=== PATIENT | female | born 1985 | race Caucasian/White ===

== ENCOUNTER 2021-04-10 06:45 | Inpatient (IN) | payer OTHER ==
[2021-04-10] MEDS ORDERED: LORazepam 2 MG/ML INJ IV STA ×2 (06:54→07:48)
[2021-04-10] MEDS ORDERED: TRANEXAMIC ACID 1,000 MG in SODIUM CHLORIDE 0.9% 100 ML IV STA (06:54)
[2021-04-10] MEDS ORDERED: DIPH,PERTUS(ACELL)TETVAC-LF 0.5 ML VIAL IM ONE (06:57)
[2021-04-10] MEDS: MORPHINE SULFATE 4 MG/ML SYRINGE IVP STA ×2 (06:57→07:06)
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
[2021-04-10] MEDS ORDERED: ONDANSETRON 4 MG/2 ML VIAL IVP STA ×2 (07:07→07:49)
[2021-04-10 07:10] LABS: HCT 42.9 % (34.0-46.0); HGB 13.7 gm/dL (11.4-16.0); MCH 30.2 pg (25.0-35.0); MCV 94.3 fL (80.0-100.0); Mean Platelet Volume 8.1; Platelet Count 286 k/uL (150-450); RBC 4.55 m/uL (3.80-5.40); RDW 12.4 % (11.5-15.5)
[2021-04-10] MEDS ORDERED: HYDROmorphone 1 MG/ML 1 ML SYRINGE IVP STA (07:15)
[2021-04-10 07:20] LABS: ALT 12 U/L (4-34); African American GFR (CKD) >90 (>60 ml/min/1.73 sqM); Albumin 3.8 g/dL (3.5-5.0); Alcohol 43 mg/dL; Anion Gap 10 mmol/L; Blood Urea Nitrogen 12 mg/dL (7-17); Calcium 8.6 mg/dL (8.4-10.2); Carbon Dioxide 16 mmol/L (22-30); Chloride 113 mmol/L (98-107); Glucose 140 mg/dL (74-99); Non-African American GFR(CKD) >90 (>60 ml/min/1.73 sqM); Sodium 139 mmol/L (137-145); Total Bilirubin 0.3 mg/dL (0.2-1.3); Total Protein 6.8 g/dL (6.3-8.2)
[2021-04-10 07:24] LABS: AST 22 U/L (14-36); Alkaline Phosphatase 81 U/L (38-126); Potassium 3.9 mmol/L (3.5-5.1)
[2021-04-10 07:26] LABS: Prothrombin Time 10.7 sec (9.0-12.0)
[2021-04-10 07:34] LABS: Partial Thromboplastin Time 21.5 sec (22.0-30.0)
[2021-04-10 07:34] LABS: Appearance,Urine Clear (Clear); Bilirubin,Urine Negative (Negative); Blood,Urine Negative (Negative); Color,Urine Yellow; Glucose,Urine (UA) Negative (Negative); Ketones,Urine Negative (Negative); Leukocyte Esterase,Urine Negative (Negative); Nitrite,Urine Negative (Negative); PH, Urine 5.5 (5.0-8.0); Protein,Urine Negative (Negative); Specific Gravity,Urine 1.014 (1.001-1.035); Urobilinogen,Urine <2.0 mg/dL (<2.0)
[2021-04-10 07:40] LABS: Eosinophils # (M) 0.12 k/uL (0-0.7); Monocytes # (M) 0.72 k/uL (0-1.0); Neutrophils # (M) 9.36 k/uL (1.3-7.7); Neutrophils % (M) 78 %; Nucleated Red Blood Cells 0 /100 WBC (0-0); Total Cells Counted 100
[2021-04-10] MEDS ORDERED: NALOXONE 0.4 MG/ML 1 ML VIAL IVP STA (07:40)
[2021-04-10] MEDS ORDERED: KETAMINE 10 MG/ML 20 ML VIAL IV ONE (07:40)
[2021-04-10 07:43] LABS: Amphetamine Screen,Urine Not Detected (NotDetected); Barbiturate Screen,Urine Not Detected (NotDetected); Benzodiazepines Screen,Urine Not Detected (NotDetected); Cocaine Screen,Urine Not Detected (NotDetected); Methadone Screen, Urine Not Detected (NotDetected); Opiate Screen,Urine Detected (NotDetected); Oxycodone Screen, Urine Not Detected (NotDetected); Phencyclidine Screen,Urine Not Detected (NotDetected); Tricyclic Antidepressant,Urine Not Detected (NotDetected); Urn Cannabinoid Scrn Detected (NotDetected)
[2021-04-10] MEDS ORDERED: SODIUM CHLORIDE 0.9% 1,000 ML IV STA (08:07)
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
[2021-04-10] MEDS ORDERED: PROPOFOL 10 MG/ML 20 ML VIAL IV ONE (08:39)
[2021-04-10] MEDS ORDERED: fentaNYL (PF) 50 MCG/ML 2 ML AMP ONE (08:39)
[2021-04-10] MEDS ORDERED: LIDOCAINE 1% INJ 10MG/ML (20 ML MDV) ONE (08:39)
[2021-04-10] MEDS ORDERED: PHENYLEPHRINE-0.9% NACL SYG 1,000 MCG/10 ML SYRINGE ONE (08:39)
[2021-04-10] MEDS ORDERED: SODIUM CHLORIDE 0.9% 100 ML BAG ONE (08:39)
[2021-04-10] MEDS ORDERED: HYDROmorphone (PF) 1 MG/ML ONE (08:39)
[2021-04-10] MEDS ORDERED: SUCCINYLCHOLINE CHLORIDE 100 MG/5 ML SYR IV ONE (08:39)
[2021-04-10] MEDS ORDERED: ceFAZolin 1,000 MG VIAL ONE (08:39)
[2021-04-10] MEDS ORDERED: LACTATED RINGERS 1,000 ML IV ONE ×4 (08:41→11:51)
[2021-04-10] MEDS ORDERED: HEPARIN SODIUM,PORCINE 5,000 UNIT in SODIUM CHLORIDE 0.9% 500 ML 500 ML IV ONE (08:45)
[2021-04-10] MEDS ORDERED: HEPARIN SODIUM,PORCINE 10,000 UNIT/ML 1 ML VIAL IV ONE (08:45)
[2021-04-10] MEDS ORDERED: ceFAZolin 1,000 MG in SODIUM CHLORIDE 0.9% 500 ML IRRIGATION ONE (09:45)
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
[2021-04-10] MEDS ORDERED: NALOXONE 0.4 MG/ML 1 ML VIAL IV PRN (11:02)
[2021-04-10] MEDS ORDERED: ONDANSETRON 4 MG/2 ML VIAL IVP PRN (11:06)
[2021-04-10] MEDS ORDERED: ACETAMINOPHEN TAB 325 MG TAB PO PRN (11:06)
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
[2021-04-10] MEDS ORDERED: HYDROmorphone 0.5 MG/0.5 ML SYRINGE IVP ONE (11:20)
[2021-04-10] MEDS: HYDROcodone/APAP 5-325MG 1 EACH TAB PO PRN (14:03)
[2021-04-10] MEDS: HYDROmorphone 0.5 MG/0.5 ML SYRINGE IVP PRN ×2 (16:53→20:39)
[2021-04-10] MEDS: HEPARIN SODIUM,PORCINE/PF 5,000 UNIT/0.5 ML SYRINGE SQ SCH (16:53)
[2021-04-10] MEDS: D5-0.45% NACL WITH KCL 20MEQ/L 1,000 ML IV SCH ×2 (16:55→21:17)
[2021-04-10 19:22] VITALS: RESP 16
[2021-04-10] MEDS: DOCUSATE 100 MG CAP PO SCH (21:15)
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
[2021-04-11] MEDS: HEPARIN SODIUM,PORCINE/PF 5,000 UNIT/0.5 ML SYRINGE SQ SCH ×2 (00:20→07:43)
[2021-04-11] MEDS: HYDROmorphone 0.5 MG/0.5 ML SYRINGE IVP PRN ×4 (00:29→11:19)
[2021-04-11] MEDS: D5-0.45% NACL WITH KCL 20MEQ/L 1,000 ML IV SCH ×2 (03:53→11:48)
[2021-04-11] MEDS: DOCUSATE 100 MG CAP PO SCH (07:42)
[2021-04-11] MEDS ORDERED: PANTOPRAZOLE 40 MG/10 ML VIAL IV SCH (09:00)
[2021-04-11] MEDS ORDERED: THIAMINE 100 MG TAB PO SCH (09:00)
[2021-04-11 09:14] LABS: African American GFR (CKD) >90 (>60 ml/min/1.73 sqM); Anion Gap 1 mmol/L; Blood Urea Nitrogen 5 mg/dL (7-17); Calcium 8.6 mg/dL (8.4-10.2); Carbon Dioxide 23 mmol/L (22-30); Chloride 113 mmol/L (98-107); Glucose 110 mg/dL (74-99); Non-African American GFR(CKD) >90 (>60 ml/min/1.73 sqM); Potassium 4.6 mmol/L (3.5-5.1); Sodium 137 mmol/L (137-145)
[2021-04-11] MEDS: HYDROcodone/APAP 5-325MG 1 EACH TAB PO PRN ×3 (09:58→15:00)
--- NOTE | 2021-04-11 11:14 | P.DS ---
Providers Date of admission: 04/10/21 08:14 Expected date of discharge: 04/11/21 Attending physician: Cliff Reese Consults: 04/10/21 11:06 Consult Physician Routine Consulting Provider: Ernestina Denise Consult Reason/Comments: Medical management Do you want consulting provider notified?: Yes Primary care physician: Suha Menjivar - Discharge Diagnosis(es) (1) Injury of ulnar artery Patient admitted through the ER yesterday after laceration right wrist. Doing well today. Pain is minimal. Still has numbness fourth and fifth digits. Able to move all of her digits however. Hand feels warm to her. She is much less anxious than yesterday. She is agreeable for discharge. We'll tentatively plan discharge today. Await vascular surgery evaluation to discuss dressing changes. Outpatient follow-up with hand surgery. Current Visit: Yes Status: Acute (2) Laceration of wrist Current Visit: Yes Status: Acute Patient Condition at Discharge: Serious Plan - Discharge Summary Discharge Rx Participant: No New Discharge Prescriptions: No Action No Known Home Medications Discharge Medication List No Known Home Medications 04/10/21 [History] Follow up Appointment(s)/Referral(s): Suha Menjivar MD [Primary Care Provider] - 1-2 days Dov Perales DO [Doctor of Osteopathic Medicine] - 1 Week
[2021-04-11 11:49] VITALS: BP 114/68; PULSE 63; TEMP 98.8
== END 2021-04-11 15:35 | disposition home or self-care (01) | DRG 908 ==
LOC: EC 06:45 → 4SSUR 08:14 → 5NMEDONC 13:02
PROVIDERS: ADMIT Surgery; ATTEND Surgery
PROC: 03Q90ZZ Repair Right Ulnar Artery, Open Approach (ICD-10-PCS; principal; 2021-04-10 07:55)
DX: S55.011A Laceration of ulnar artery at forearm level, right arm, initial encounter (principal); S66.921A Laceration of unspecified muscle, fascia and tendon at wrist and hand level, right hand, initial encounter; I95.9 Hypotension, unspecified; F10.129 Alcohol abuse with intoxication, unspecified; S54.01XA Injury of ulnar nerve at forearm level, right arm, initial encounter; Z20.822 Contact with and (suspected) exposure to COVID-19; J45.909 Unspecified asthma, uncomplicated; Y90.2 Blood alcohol level of 40-59 mg/100 ml; F17.200 Nicotine dependence, unspecified, uncomplicated; Z71.6 Tobacco abuse counseling; W25.XXXA Contact with sharp glass, initial encounter; W22.09XA Striking against other stationary object, initial encounter
CPT/HCPCS: 36415; 80048; 80053; 80306; 80320; 81003; 81025; 84484; 85025; 85610; 85730; 86850; 86900; 86901; 86920; 87635; 90471; 90715; 93005; 96365; 96375; 99291

== ENCOUNTER 2021-04-15 09:30 | Day surgery (SDC) | payer OTHER ==
[2021-04-14 09:41] VITALS: BMI 24.7
--- NOTE | 2021-04-14 13:15 | P.HPOR ---
History of Present Illness H&P Date: 04/14/21 Chief Complaint: Right hand complex laceration/ ulnar nerve laceration Subjective: This is a 35 year old female that presents today for initial evaluation regarding a right wrist injury that occurred on 04/10/21. Patient reportedly punched through glass and sustained a laceration on the volar ulnar aspect of her wrist. She was taken emergently to the OR due to concern for arterial injury and ultimately underwent a ulnar artery laceration repair on 04/10/[address] Park. Intra-operatively there was concern for tendon/nerve laceration. She is referred to orthopedics today for further work up for her injury. She has been in a volar splint since surgery. She states she has diffuse numbness in the small and ring finger and the ulnar boarder of her middle finger. She also reports global weakness in the hand. She has been taking keflex since her injury. Physical Examination: RUE: AIN/PIN/Radial/Median motor intact. Radial/Median SILT. 2+/4 Radial/Ulnar pulses palpated. 0/5 FDI. 5/5 APB. FPL intact. FDP/FDS index through middle intact. Able to fire FDP/FDS of small and ring finger however weakness is present with resistance to IP joint flexion. Insensate to light touch on volar surfaces of small and ring fingers, slightly diminished sensation on ulnar aspect of middle finger. Imaging: X-Rays of the right wrist demonstrate no fracture or dislocation. Impression: 1.)Right volar/ulnar wrist laceration with ulnar artery/nerve laceration s/p ulnar artery repair by Dr. Park 04/10/21. 2.) Ulnar nerve laceration, possible flexor tendon lacerations to ring/small/FCU tendons. Plan: Diagnosis and treatment options were discussed with the patient. On exam today she has findings concerning for an ulnar nerve laceration as well as wrist flexor tendon lacerations. We discussed the complex nature of her injury and the guarded prognosis for complete return of nerve function. We discussed that she will require further exploration of her laceration to repair any nerve or tendon lacerations. Prognosis of ulnar nerve laceration at the level of the wrist were discussed with the patient and I explained that she will likely have permanent symptoms including numbness and weakness and possible developement of claw deformity due to her injury and that the goals of surgery would be to eventually regain any type of protective sensation. I explained that nerve recovery can take months to years. She understood the risks and benefits of surgery and wished to proceed with surgical intervention. The patient was agreeable with this plan of action and we will tentatively schedule right wrist laceration with possible nerve/tendon repair within the next 3-5 days. -Dov Perales DO Orthopedic Hand/Upper Extremity Surgeon Past Medical History Past Medical History: No Reported History History of Any Multi-Drug Resistant Organisms: None Reported Past Surgical History: Appendectomy Additional Past Surgical History / Comment(s): Essure control. Right arm artery repair. Past Anesthesia/Blood Transfusion Reactions: No Reported Reaction Past Psychological History: Anxiety Smoking Status: Current every day smoker Past Alcohol Use History: Abuse, Heavy Additional Past Alcohol Use History / Comment(s): Smoker off and on for 5 yrs. Past Drug Use History: Marijuana Additional Drug Use History / Comment(s): Marijuana use daily. Aware no Alcohol or Marijuana 24 hrs prior to procedure. - Past Family History Mother Family Medical History: No Reported History Medications and Allergies Home Medications Medication Instructions Recorded Confirmed Type Cephalexin [Keflex] 500 mg PO Q8HR 7 Days #21 cap 04/11/21 04/14/21 Rx oxyCODONE HCL [OxyIR] 5 mg PO Q6H PRN 3 Days #6 tab 04/11/21 04/14/21 Rx Acetaminophen [Tylenol] 500 - 1,000 mg PO Q4-6H PRN 04/14/21 04/14/21 History Allergies Allergy/AdvReac Type Severity Reaction Status Date / Time No Known Allergies Allergy Verified 04/14/21 09:43 Physical Examination Osteopathic Statement: *. No significant issues noted on an osteopathic structural exam other than those noted in the History and Physical/Consult.
[~2021-04-15 09:30] MED LIST: DEXAMETHASONE SOD PHOSPHATE 4 MG/ML 1 ML VIAL IV ONE; LACTATED RINGERS 1,000 ML IV SCH; LIDOCAINE 1% (10MG/ML) FOR IV START INTRADERMA PRN; ONDANSETRON 4 MG/2 ML VIAL IVP ONE; SCOPOLAMINE 1.5MG/72HR PATCH TRANSDERM ONE
[2021-04-15] MEDS ORDERED: SODIUM CHLORIDE 0.9% 100 ML BAG ONE (11:10)
[2021-04-15] MEDS ORDERED: HYDROmorphone (PF) 1 MG/ML ONE (11:10)
[2021-04-15] MEDS ORDERED: NEOSTIGMINE 1 MG/ML 10 ML VIAL ONE (11:10)
[2021-04-15] MEDS ORDERED: PROPOFOL 10 MG/ML 20 ML VIAL IV ONE (11:10)
[2021-04-15] MEDS ORDERED: ceFAZolin 1,000 MG VIAL ONE (11:10)
[2021-04-15] MEDS ORDERED: SUCCINYLCHOLINE CHLORIDE 100 MG/5 ML SYR IV ONE (11:10)
[2021-04-15] MEDS ORDERED: MIDAZOLAM 2 MG/2 ML VIAL ONE (11:10)
[2021-04-15] MEDS ORDERED: ROCURONIUM 10 MG/ML (5 ML VIAL) IV ONE (11:10)
[2021-04-15] MEDS ORDERED: LIDOCAINE 1% INJ 10MG/ML (20 ML MDV) ONE (11:10)
[2021-04-15] MEDS ORDERED: GLYCOPYRROLATE 0.2 MG/ML 2 ML VIAL ONE (11:10)
[2021-04-15] MEDS ORDERED: fentaNYL (PF) 50 MCG/ML 2 ML AMP ONE (11:10)
[2021-04-15] MEDS ORDERED: LIDOCAINE 1% INJ 10MG/ML (20 ML MDV) SQ ONE ×2 (11:49→13:29)
[2021-04-15] MEDS ORDERED: BUPIVACAINE (PF) 0.5% 30 ML VIAL SQ ONE ×2 (11:50→13:29)
[2021-04-15] MEDS ORDERED: LACTATED RINGERS 1,000 ML IV ONE (13:15)
[2021-04-15] MEDS ORDERED: MEPERIDINE 50 MG/ML SYRINGE IVP ONE (13:51)
[2021-04-15 14:16] VITALS: TEMP 97.4
[2021-04-15] MEDS: HYDROmorphone 0.5 MG/0.5 ML SYRINGE IVP PRN ×2 (14:50→15:30)
[2021-04-15] MEDS ORDERED: HYDROcodone/APAP 5-325MG 1 EACH TAB ONE (15:07)
[2021-04-15] MEDS ORDERED: HYDROcodone/APAP 5-325MG 1 EACH TAB PO ONE (15:19)
[2021-04-15] MEDS ORDERED: KETOROLAC 15 MG/ML 1 ML VIAL IVP ONE (15:32)
[2021-04-15] MEDS ORDERED: KETOROLAC 30 MG/ML 1 ML VIAL ONE (15:33)
[2021-04-15 16:27] VITALS: RESP 16
[2021-04-15 16:29] VITALS: BP 138/77; PULSE 77
--- NOTE | 2021-04-15 20:14 | P.OP ---
Date of Procedure: 04/15/21 Preoperative Diagnosis: 1.) Right hand complex laceration involving possible tendon/nerve at level of wrist/distal forearm. Postoperative Diagnosis: 1.) Right ulnar nerve laceration at level of wrist, complete. 2.) Right median nerve laceration at level of wrist, 60% thickness 3.) Right flexor carpi ulnaris tendon laceration, complete 4.) Right palmaris longus tendon laceration, 90% 5.) Right ring finger flexor digitorum profundus tendon laceration, 30% 6.) Right ring finger flexor digitorum superficialis tendon laceration, complete. 7.) Right small finger flexor digitorum profundus tendon laceration, complete. 8.) Complex right wrist laceration, 8cm. Procedure(s) Performed: 1.) Right ulnar nerve laceration repair at level of wrist. 2.) Right median nerve laceration repair at level of wrist. 3.) Right flexor carpi ulnaris tendon laceration repair at level of wrist, zone 5. 4.) Right ring finger flexor digitorum superficialis tendon laceration tendon repair at level of wrist, zone 5. 7.) Right small finger flexor digitorum profundus tendon laceration repair at level of wrist, zone 5. 8.) Right open carpal tunnel release 9.) Complex right wrist laceration repair, 8cm Anesthesia: GETA Surgeon: Dov Perales Estimated Blood Loss (ml): 10 Pathology: none sent Condition: stable Disposition: PACU Description of Procedure: This is a 35 year old female who sustained an injury to her right wrist after punching a mirror. She previously had surgery with Dr. Park, vascular surgeon who peformed an ulnar artery laceration repair on 04/10/21. Intra- operatively there were concerns for possible tendon and nerve involvement. She presents today for further wound exploration with possible tendon/nerve repair. Risks and benefits of surgery were discussed with the patient including bleeding, damage to surrounding tissue, infection, need for further surgery, stiffness, permanent nerve damage and possible loss of limb as well as risks of anesthesia including pulmonary embolism and even and the patient wished to proceed with surgical intervention. The patient was seen in the pre-operative area by myself. Consent and H&P were completed and updated. The correct extremity was marked in the pre-operative area by myself and all other questions were answered. Operative Narrative: The patient was brought to the operating room by the department of anesthesia. They remained on the portable stretcher and a rolling hand table was brought to the side of the operative extremity. Pre-operative time out was performed indicating the correct patient, procedure and laterality. All in the room agreed. Pre-operative antibiotics were given prior to skin incision. The patient was then drifted off to sleep by the department of anesthesia, general anesthesia was utilized. A nonsterile tourniquet was then applied to the operative extremity and the right upper extremity was then prepped and draped in normal sterile fashion. The operative extremity was the elevated to gravity and the tourniquet was inflated to 250mmHg. The previously placed nylon sutures were remove from the laceration and passed off of the sterile field. Wound edges were then easily opened with Littler tenotomy scissors and blunt dissection was taken down through subcutaneous tissue. The flexor carpi ulnaris tendon was identified and was found to be completely lacerated. Deep to the proximal and distal portions of the FCU tendon, the previously performed ulnar artery anastamosis was identified and the proximal and distal portions of the ulnar nerve were identified just ulnar to the artery, there was complete transection of the ulnar nerve at the level of the distal forearm. Exploration was then taken further radial, the median nerve was identified and was found to have a 60% thickness transverse laceration. Deep to the median nerve at the level of the proximal border of the carpal tunnel there appeared to be several lacerated flexor tendons, therefore the existing laceration was extended distally crossing the distal wrist flexion crease with a 15 blade scalpel in a Lala fashion with extension down the mid palmar skin, inline with the radial border of the ring finger. Blunt dissection was taken to reveal the palmar fascia, there appeared to be a 90 percent palmaris longus tendon laceration at the level of its insertion to the superficial palmar fascia, this was not amendable to repair due to the laceration being at the level of its broad insertion. Dissection was taken down to the transverse carpal ligament which was released with a 15 blade scalpel in it's entirety. This unveiled several lacerated flexor tendons, of which the distal portions were found in the carpal tunnel. The FPL tendon was identified and was intact. FDP/FDS to the index, and middle fingers were identified any intact. There was a 30% tendon laceration to the FDP tendon of the ring finger, edges of the partial thickness tendon were trimmed. Proximal and distal portions of the FDS tendon to the ring finger were identified and found to be completely lacerated, this was repaired with 4-0 ethibond suture with a core suture in a modified bill fashion followed by a running 5-0 prolene. The FDP tendon to the small finger was found to be 100% lacerated, proximal and distal portions of the tendon were then repaired using a 4-0 ethibond suture with a core suture in a modified bill fashion. The patient did not have a FDS to the small finger. Attention was then brought to the median nerve laceration. 8-0 nylon suture under loupe magnification was used to perform an epineural repair to loosely approximate the proximal and distal portions of the median nerve in a tension free fashion. Attention was then brought to the completely transected ulnar nerve. The wrist was flexed and edges of ulnar nerve were sharply incised with scalpel to remove fibrous tissue to reveal fresh edges. 8-0 nylon was then used to perform epineural repair to approximate the distal and proximal portions in a tension free manner. Lastly, the previously identified FCU tendon was exposed, 4-0 ethibond was then utilized to perform a core suture in a modified bill pattern, followed by another figure of 8 stitch. The wound was then irrigated. Skin closure was performed with 4-0 nylon suture in a horizontal mattress fashion. 10ccs mixture of 1% lidocaine and .5% bupivicaine was injected into the surgical area and carpal tunnel. Sterile dressing consisting of adaptic, 4x4s, webril, and a dorsal blocking plaster splint with the wrist and MCP joints in flexion and PIP joints in 20 degrees of flexion. Tourniquet was then let down and the the hand was immediately perfused. The patient was then woken by the department of anesthesia and transferred to PACU in stable condition. Dov Perales D.O. Orthopedic Hand/Upper Extremity Surgeon
== END 2021-04-15 16:30 | disposition home or self-care (01) ==
LOC: OR 09:30
PROVIDERS: ATTEND Orthopaedic Surgery Hand Surgery
DX: S64.01XA Injury of ulnar nerve at wrist and hand level of right arm, initial encounter (principal); S64.11XA Injury of median nerve at wrist and hand level of right arm, initial encounter; S61.411A Laceration without foreign body of right hand, initial encounter; S66.821A Laceration of other specified muscles, fascia and tendons at wrist and hand level, right hand, initial encounter; S66.124A Laceration of flexor muscle, fascia and tendon of right ring finger at wrist and hand level, initial encounter; S61.511A Laceration without foreign body of right wrist, initial encounter; S66.126A Laceration of flexor muscle, fascia and tendon of right little finger at wrist and hand level, initial encounter; W25.XXXA Contact with sharp glass, initial encounter; F10.10 Alcohol abuse, uncomplicated; Z90.49 Acquired absence of other specified parts of digestive tract; F41.9 Anxiety disorder, unspecified; F17.200 Nicotine dependence, unspecified, uncomplicated; Z98.890 Other specified postprocedural states; Z79.899 Other long term (current) drug therapy
CPT/HCPCS: 81025; 64721; 26356 ×2; J2250; J1100; J2710; J2175; J2405; J0690; J2001; J3010; J1170 ×2; J1885; J0330; J2704

== ENCOUNTER 2023-09-07 12:08 | Emergency (ER) | payer OTHER ==
[2023-09-07 12:24] VITALS: RESP 18; TEMP 98.6
--- NOTE | 2023-09-07 12:32 | ED ---
General Adult HPI - General Chief complaint: ENT Stated complaint: swallowed foreign obj. Time Seen by Provider: 09/07/23 12:10 Source: patient, RN notes reviewed, old records reviewed Mode of arrival: ambulatory Limitations: no limitations - History of Present Illness Initial comments: This is a 37-year-old female who presents to the emergency department stating that she thinks her nose ring that she swallowed 1 year ago is stuck in her throat that makes it difficult to breathe. Patient is in no respiratory distress. Patient is obviously intoxicated. Patient would not give any further history except that she swallowed a year ago and she wants an x-ray when I told her that she would need given explanation as to why she did not come a year ago or any time during the year she she had very upset and did not want to speak to me anymore and wanted her mother to do all the talking and mom did not have any of the history. Patient is not complaining of any throat pain patient complaining of chest pain. She refused to give any further history - Related Data Home Medications Medication Instructions Recorded Confirmed Acetaminophen [Tylenol] 500 - 1,000 mg PO Q4-6H PRN 04/14/21 04/15/21 Previous Rx's Medication Instructions Recorded Cephalexin [Keflex] 500 mg PO Q8HR 7 Days #21 cap 04/11/21 oxyCODONE HCL [OxyIR] 5 mg PO Q6H PRN 3 Days #6 tab 04/11/21 HYDROcodone/APAP 5-325MG [[place] 2 tab PO Q6HR PRN 3 Days #24 tab 04/15/21 5-325] Allergies Allergy/AdvReac Type Severity Reaction Status Date / Time No Known Allergies Allergy Verified 09/07/23 12:13 Review of Systems ROS Statement: Those systems with pertinent positive or pertinent negative responses have been documented in the HPI. ROS Other: All systems not noted in ROS Statement are negative. Past Medical History Past Medical History: No Reported History History of Any Multi-Drug Resistant Organisms: None Reported Past Surgical History: Appendectomy Additional Past Surgical History / Comment(s): Essure control. Right arm artery repair. Past Anesthesia/Blood Transfusion Reactions: No Reported Reaction Past Psychological History: Anxiety Smoking Status: Current every day smoker Past Alcohol Use History: Abuse, Heavy Past Drug Use History: Marijuana - Past Family History Mother Family Medical History: No Reported History General Exam - General Exam Comments Initial Comments: GENERAL: Patient appears intoxicated and is in no apparent distress she sits in bed with her mouth closed and not breathing hard ENT: Neck is soft and supple. Neck has full range of motion without eliciting any pain. EYES: The sclera were anicteric and conjunctiva were pink and moist. PULMONARY: Unlabored respirations. Good breath sounds bilaterally. No audible rales rhonchi or wheezing was noted. CARDIOVASCULAR: There is a regular rate and rhythm without any murmurs gallops or rubs. SKIN: Skin is clear with no lesions or rashes and otherwise unremarkable. NEUROLOGIC: Patient is alert and oriented x3. Cranial nerves II through XII are grossly intact. Motor and sensory are also intact. Normal speech, volume and content. Symmetrical smile. MUSCULOSKELETAL: Normal extremities with adequate strength and full range of motion. PSYCHIATRIC: Patient is agitated Limitations: no limitations Course Vital Signs 09/07/23 09/07/23 12:10 13:07 Temperature 98.6 F Pulse Rate 153 H 94 Respiratory 18 18 Rate Blood Pressure 194/112 145/95 O2 Sat by Pulse 96 98 Oximetry Medical Decision Making - Medical Decision Making Was pt. sent in by a medical professional or institution (, PA, FINANCIAL ACCOUNTING MANAGER, urgent care, hospital, or care home...) When possible be specific @ -No Did you speak to anyone other than the patient for history (EMS, parent, family, police, friend...)? What history was obtained from this source @ -No Did you review nursing and triage notes (agree or disagree)? Why? @ -I reviewed and agree with nursing and triage notes Were old charts reviewed (outside hosp., previous admission, EMS record, old EKG, old radiological studies, urgent care reports/EKG's, care home records)? Report findings @ -No old charts were reviewed Differential Diagnosis (chest pain, altered mental status, abdominal pain women, abdominal pain men, vaginal bleeding, weakness, fever, dyspnea, syncope, headache, dizziness, GI bleed, back pain, seizure, CVA, palpatations, mental health, musculoskeletal)? @ -Foreign body throat, foreign body lungs, foreign body esophagus, this is not an all-inclusive list EKG interpreted by me (3pts min.). @ -As above X-rays interpreted by me (1pt min.). @ -X-ray of the chest and soft tissue of the neck showed no foreign body and no acute abnormality CT interpreted by me (1pt min.). @ -None done U/S interpreted by me (1pt. min.). @ -None done What testing was considered but not performed or refused? (CT, X-rays, U/S, labs)? Why? @ -None What meds were considered but not given or refused? Why? @ -None Did you discuss the management of the patient with other professionals (professionals i.e. , PA, FINANCIAL ACCOUNTING MANAGER, lab, RT, psych nurse, social security specialist, gis mapping technician, teacher, returning officer, case management coordinator)? Give summary @ -No Was smoking cessation discussed for >3mins.? @ -No Was critical care preformed (if so, how long)? @ -No Were there social determinants of health that impacted care today? How? (Homelessness, low income, unemployed, alcoholism, drug addiction, transportation, low edu. Level, literacy, decrease access to med. care, [facility], rehab)? @ -No Was there de-escalation of care discussed even if they declined (Discuss DNR or withdrawal of care, Hospice)? DNR status @ -No What co-morbidities impacted this encounter? (DM, HTN, Smoking, COPD, CAD, Cancer, CVA, ARF, Chemo, Hep., AIDS, mental health diagnosis, sleep apnea, morbid obesity)? @ -None Was patient admitted / discharged? Hospital course, mention meds given and route, prescriptions, significant lab abnormalities, going to OR and other pertinent info. @ -Patient refused to give any further history she was intoxicated and very obnoxious. Patient had no foreign body and it was never any distress and her vital signs were normal when she was discharged Undiagnosed new problem with uncertain prognosis? @ -No Drug Therapy requiring intensive monitoring for toxicity (Heparin, Nitro, Insulin, Cardizem)? @ -No Were any procedures done? @ -No Diagnosis/symptom? @ -Globus hystericus Acute, or Chronic, or Acute on Chronic? @ -Acute Uncomplicated (without systemic symptoms) or Complicated (systemic symptoms)? @ -Uncomplicated Side effects of treatment? @ -No Exacerbation, Progression, or Severe Exacerbation? @ -No Poses a threat to life or bodily function? How? (Chest pain, [place], [place], pneumonia, PE, COPD, DKA, ARF, appy, cholecystitis, CVA, Diverticulitis, Homicidal, Suicidal, threat to staff... and all critical care pts) @ -No Disposition Clinical Impression: Foreign body sensation in throat, Alcohol intoxication Disposition: HOME SELF-CARE Condition: Good Is patient prescribed a controlled substance at d/c from ED?: No Referrals: Lashon Ignacio MD [Primary Care Provider] - 1-2 days Time of Disposition: 13:25
--- NOTE | 2023-09-07 12:57 | XR ---
EXAMINATION TYPE: XR chest 2V DATE OF EXAM: 09/07/2023 COMPARISON: 05/15/2013 INDICATION: Swallowed nose ring one year ago feels poking in neck TECHNIQUE: Frontal and lateral views of the chest are obtained. FINDINGS: The heart size is normal. The pulmonary vasculature is normal. The lungs are clear. No radiopaque foreign bodies are evident within the field of view. IMPRESSION: 1. No acute pulmonary process. 2. No radio opaque foreign body.
--- NOTE | 2023-09-07 12:58 | XR ---
EXAMINATION TYPE: XR soft tissue neck DATE OF EXAM: 09/07/2023 COMPARISON: None HISTORY: Swallowed nose ring one year ago feels poking in neck TECHNIQUE: 2 view soft tissue neck FINDINGS: There is a nose ring in the nose. Fillings are evident within the teeth. No radiopaque fore ign body within the soft tissues of the neck is evident. Prevertebral space is normal. Epiglottis is unremarkable. Subglottic airway appears clear. IMPRESSION: 1. No suspicious radiopaque foreign bodies.
[2023-09-07 13:08] VITALS: BP 145/95; PULSE 94
== END 2023-09-07 13:40 | disposition home or self-care (01) ==
LOC: EC 12:08
DX: T17.1XXA Foreign body in nostril, initial encounter (principal); F10.129 Alcohol abuse with intoxication, unspecified; F17.200 Nicotine dependence, unspecified, uncomplicated; F12.90 Cannabis use, unspecified, uncomplicated
CPT/HCPCS: 70360; 71046; 99283